=== PATIENT | male | born 1985 | race African-American/Black ===

== ENCOUNTER 2017-04-05 13:01 | Emergency (ER) | payer SELFPAY ==
[~2017-04-05] VITALS: Ht 175.3 cm; Wt 79.0 kg
[~2017-04-05 13:01] MED LIST: ALBU0.086 NEB; ALBU1AER INH; ALBU8I INH; PRED20 PO
[2017-04-05 13:03] VITALS: BP 113/66; PULSE 75; RESP 20; TEMP 98.7; O2SAT 97
--- NOTE | 2017-04-05 13:08 | PD ---
Physical Exam Date Seen by Provider: Apr 05, 2017 Time Seen by Provider: 13:06 Narrative 32 yo male here for cold like symptoms. Going on for a few days. Congestion and cough. Hard to breath. No history of this. No chest pain. Cough is productive. OTC not helping. Pain to back from cough. Vitals are stable in triage. Awaiting bed placement. Data Data Last Documented VS Vital Signs Date Time Temp Pulse Resp B/P Pulse Ox O2 Delivery O2 Flow Rate FiO2 04/05/17 13:03 98.7 75 20 113/66 97 Room Air [facility] Medical Record Reviewed: Yes Supervised Visit with KOS[facility]: No Parish Hernandez Apr 05, 2017 13:08
--- NOTE | 2017-04-05 13:18 | PD ---
HPI Chief Complaint: Respiratory Distress Time Seen by Provider: 13:18 Travel History International Travel<30 days: No Contact w/Intl Traveler<30days: No Traveled to known affect area: No History of Present Illness HPI 32 YO M with PMH of asthma presents to the ED for evaluation of 2 day history of wheezing and SOB. Gradual onset. He endorses nonproductive cough, denies other respiratory symptoms. The patient states that symptoms onset gradually after he began to have pain in his neck that radiates to his shoulders, worsened by ROM of the neck and right arm. He thinks he strained his neck at work. He works for a [employer]. He endorses smoking cigarettes and marijuana daily. He treated with a single albuterol nebulizer this morning with only mild improvement of symptoms. PFSH Past Medical History Hx Anticoagulant Therapy: No Asthma: Yes Blood Disorders: No Cancer: No Cardiovascular Problems: No Chemotherapy: No Cerebrovascular Accident: No Diabetes: No Diminished Hearing: No Endocrine: No Gastrointestinal Disorders: No Genitourinary: No Immune Disorder: No Musculoskeletal: No Neurologic: No Psychiatric: No Reproductive: No Respiratory: Yes Past Surgical History AICD: No Arteriovenous Shunt: No Insulin Pump: No Joint Replacement: No Pacemaker: No Other Surgery: No Social History Alcohol Use: Yes (two beers daily) Tobacco Use: Yes (5 cigs a day trying to quit) Substance Use: No Allergies-Medications (Allergen,Severity, Reaction): Coded Allergies: No Known Allergies (Verified , 04/05/17) Reported Meds & Prescriptions Reported Meds & Active Scripts Active Ibuprofen 600 Mg Tab 600 Mg PO Q8H PRN Flexeril (Cyclobenzaprine HCl) 10 Mg Tab 10 Mg PO TID Prednisone 20 Mg Tab 40 Mg PO DAILY Take 40 mg (2 tablets) daily for 5 days Reported Claritin (Loratadine) 10 Mg Cap 10 Mg PO DAILY Albuterol Neb (Albuterol Sulfate) 2.5 Mg/0.5 Ml Neb 2.5 Mg NEB Q4HR NEB PRN Note: The Albuterol Sulfate Inhalation Solution is concentrated and must be diluted. Read complete instructions carefully before using. Proair Hfa 8.5 GM Inh (Albuterol Sulfate) 90 Mcg/Act Aer 2 Puff INH Q4-6H PRN 108 mcg/actuation Review of Systems Except as stated in HPI: all other systems reviewed are Neg Physical Exam Narrative GENERAL: Well-nourished, well-developed thin black male in no acute distress. Shirtless than wearing his sunglasses when I walk in the room.. SKIN: Focused skin assessment warm/dry. HEAD: Normocephalic. EYES: No scleral icterus. No injection or drainage. NECK: Supple, trachea midline. No JVD or lymphadenopathy. CARDIOVASCULAR: Regular rate and rhythm without murmurs, gallops, or rubs. RESPIRATORY: Diffuse wheezing in all lung burns. No accessory muscle use. GASTROINTESTINAL: Abdomen soft, non-tender, nondistended. MUSCULOSKELETAL: No cyanosis, or edema. BACK: No obvious deformity. No CVA tenderness. Tender to palpation of the medial aspect of the latissimus on the right. Data Data Last Documented VS Vital Signs Date Time Temp Pulse Resp B/P Pulse Ox O2 Delivery O2 Flow Rate FiO2 04/05/17 15:22 69 18 118/67 96 04/05/17 13:39 Room Air 04/05/17 13:03 98.7 Orders Albuterol Neb (Albuterol Neb) (04/05/17 13:30) Dexamethasone Inj (Decadron Inj) (04/05/17 13:30) Methocarbamol (Robaxin) (04/05/17 13:30) Ibuprofen (Motrin) (04/05/17 13:30) Chest, Single Ap (04/05/17 ) MDM Medical Decision Making Medical Screen Exam Complete: Yes Emergency Medical Condition: Yes Differential Diagnosis Asthma exacerbation versus PNA versus muscle spasm versus musculoskeletal pain versus other Narrative Course 32 YO M with PMH of asthma presents to the ED for evaluation of 2 day history of wheezing and SOB. Gradual onset. He endorses nonproductive cough. He thinks he strained his neck at work which brought on these symptoms. Smokes cigarettes and marijuana daily. Treated with 1 albuterol nebulizer. Vitals reviewed. Physical exam reveals a nontoxic-appearing black male in no acute distress. Breath sounds are very tight and easy bilaterally. There is point tenderness in the medial aspect of the trapezius of the right shoulder that continues into the neck. Patient was administered IM Solu-Medrol, DuoNeb nebs 3, by mouth Flexeril and 800 mg ibuprofen. On recheck he reports improvement of his symptoms. The patient's instructed to return to normal, gentle activities as tolerated. He was prescribed a short course of steroids, anti- inflammatories and muscle relaxants. He is provided a note for 2 days off work. He is instructed to continue with albuterol treatments at home, follow up with primary care. He indicated understanding of the instructions and is agreeable to a care plan. He is stable and discharged home. Diagnosis Primary Impression: Asthma exacerbation Additional Impression: Muscle spasm Referrals: Primary Care Physician Patient Instructions: Asthma (ED), General Instructions, Muscle Spasm (ED) Additional Instructions: Rest, hydrate. Return to normal, gentle activities as tolerated. Warm compresses placed over the neck muscles may help to reduce your symptoms. Take steroids as prescribed. Continue with at home albuterol treatments. Take muscle relaxants and ibuprofen as needed, as prescribed. Do not drive while taking muscle relaxants. Follow-up with her primary care provider. Return to the ED for any urgent or emergent medical condition. Med/Other Pt SpecificInfo: Prescription(s) given Scripts Ibuprofen 600 Mg [id number] Mg PO Q8H PRN (PAIN) #15 TAB Ref 0 Prov:Sol Burgos DO 04/05/17 Cyclobenzaprine (Flexeril)10 Mg Tab10 Mg PO TID #15 TAB Ref 0 Prov:Sol Burgos DO 04/05/17 Prednisone 20 Mg Tab40 Mg PO DAILY #10 TAB Ref 0 Take 40 mg (2 tablets) daily for 5 days Prov:Sol Burgos DO 04/05/17 Disposition: 01 DISCHARGE HOME Condition: Stable Jennifer Rivera Apr 05, 2017 13:18
[2017-04-05] MEDS ORDERED: DEXAMETHASONE SOD PHOS 4 MG/ML VIAL IM ONE (13:30)
[2017-04-05] MEDS ORDERED: IBUPROFEN 600 MG TAB PO ONE (13:30)
[2017-04-05] MEDS ORDERED: METHOCARBAMOL 500 MG TAB PO ONE (13:30)
[2017-04-05] MEDS ORDERED: ALBU.5I NEB (13:36)
[2017-04-05] MEDS ORDERED: CLAR10CA3 PO (13:36)
[2017-04-05] MEDS ORDERED: ALBUAER3 INH (13:36)
[2017-04-05] MEDS: RESP: ALBUTEROL 2.5 MG/3 ML NEB (SCH) INH ×2 (14:01→14:02)
[2017-04-05] MEDS ORDERED: PRED20 PO (14:40)
[2017-04-05] MEDS ORDERED: CYCL1TAB29 PO (14:40)
[2017-04-05] MEDS ORDERED: IBUP-232 PO (14:40)
--- NOTE | 2017-04-05 15:19 | RADRPT ---
EXAM DATE/TIME: 04/05/2017 14:27 [facility] COMPARISON: CHEST SINGLE AP, August 18, 2015, 14:43. INDICATIONS : Chest pain. MEDICAL HISTORY : None. SURGICAL HISTORY : None. ENCOUNTER: Initial ACUITY: 3 days PAIN SCORE: 7/10 LOCATION: Bilateral chest FINDINGS: A single view of the chest demonstrates the lungs to be symmetrically aerated without evidence of mas s, infiltrate or effusion. The cardiomediastinal contours are unremarkable. Osseous structures are intact. CONCLUSION: No acute disease. Raphael Roe MD on April 05, 2017 at 15:17 Board Certified Radiologist. This report was verified electronically.
[2017-04-05 15:22] VITALS: BP 118/67
== END 2017-04-05 15:24 | disposition home or self-care (01) ==
LOC: NEPD 13:01
DX: J45.901 Unspecified asthma with (acute) exacerbation (principal); M62.838 Other muscle spasm
CPT/HCPCS: 71010; 94640; 94664; 96372; 99284; J1100; J7613

== ENCOUNTER 2017-09-30 16:06 | Emergency (ER) | payer BC ==
[~2017-09-30] VITALS: Ht 175.3 cm; Wt 77.0 kg
[~2017-09-30 16:06] MED LIST changes: +ALBU.5I NEB; -ALBU0.086 NEB; -ALBU1AER INH; -ALBU8I INH; +ALBUAER3 INH; +CLAR10CA3 PO; +CYCL10TA PO; +IBUP-232 PO
[2017-09-30 16:07] VITALS: BP 137/69; PULSE 91; RESP 14; TEMP 98.2; O2SAT 98
--- NOTE | 2017-09-30 16:26 | PD ---
HPI Chief Complaint: Medical Clearance Time Seen by Provider: 16:13 Travel History International Travel<30 days: No Contact w/Intl Traveler<30days: No Traveled to known affect area: No History of Present Illness HPI 32-year-old male presents to the emergency department complaining of small ulcers on his penis. He states he started for 5 days ago. He denies having had previous similar symptoms. No dysuria, no discharge, no testicular pain or swelling. 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 No other complaints. History Past Medical History Medical History: Denies Significant Hx Social History Alcohol Use: Yes (pt states on the weekends) Tobacco Use: Yes (5 cigs a day trying to quit) Allergies-Medications (Allergen,Severity, Reaction): Coded Allergies: No Known Allergies (Verified , 04/05/17) Reported Meds & Prescriptions Reported Meds & Active Scripts Active Ibuprofen 600 Mg Tab 600 Mg PO Q8H PRN Flexeril (Cyclobenzaprine HCl) 10 Mg Tab 10 Mg PO TID Prednisone 20 Mg Tab 40 Mg PO DAILY Take 40 mg (2 tablets) daily for 5 days Reported Claritin (Loratadine) 10 Mg Cap 10 Mg PO DAILY Albuterol Neb (Albuterol Sulfate) 2.5 Mg/0.5 Ml Neb 2.5 Mg NEB Q4HR NEB PRN Note: The Albuterol Sulfate Inhalation Solution is concentrated and must be diluted. Read complete instructions carefully before using. Proair Hfa 8.5 GM Inh (Albuterol Sulfate) 90 Mcg/Act Aer 2 Puff INH Q4-6H PRN 108 mcg/actuation Review of Systems Except as stated in HPI: all other systems reviewed are Neg Physical Exam Narrative GENERAL: Well-appearing 32-year-old man, no acute distress. SKIN: Warm and dry. CARDIOVASCULAR: Warm and well perfused. RESPIRATORY: Normal rate and effort. : Normal external male genitalia. Just near the glans penis there is 2 small clustered ulcerations with scabbing. No tenderness or pain now. No penile discharge. No testicular pain or swelling. No other obvious rashes or lesions noted. NEUROLOGICAL: Awake and alert. No gross deficits. Data Data Last Documented VS Vital Signs Date Time Temp Pulse Resp B/P (MAP) Pulse Ox O2 Delivery O2 Flow Rate FiO2 09/30/17 16:07 98.2 91 14 137/69 (91) 98 MDM Medical Decision Making Medical Screen Exam Complete: Yes Emergency Medical Condition: Yes Differential Diagnosis Herpes, rash or abrasions, viral exanthem, molluscum contagiosum, other Narrative Course Medical decision making para 3-year-old male with 2 small ulcerated lesions on his penile shaft. This seems most consistent with HSV. He looks well. Counseled regarding HSV. Recommended for outpatient follow-up for other STD testing. Diagnosis Primary Impression: Penile ulcer Additional Instructions: Followup with your primary physician or the health department and followup testing for other sexually transmitted infection such as HIV, hepatitis, syphilis. Med/Other Pt SpecificInfo: No Change to Meds Disposition: 01 DISCHARGE HOME Condition: Stable Brandyn Glover MD Sep 30, 2017 16:26
== END 2017-09-30 16:37 | disposition home or self-care (01) ==
LOC: NEPC 16:06
DX: N48.5 Ulcer of penis (principal); F17.210 Nicotine dependence, cigarettes, uncomplicated
CPT/HCPCS: 99282